=== PATIENT | female | born 1945 | race Caucasian/White ===

== ENCOUNTER 2022-01-06 01:04 | Day surgery (SDC) | payer MEDICARE, SELFPAY ==
--- NOTE | 2021-12-25 08:59 | PC.NURSE ---
Report to the Outpatient Waiting Room, entrance under the green pavilion located off [facility], at time __0630 on date ___01/06/22____. Planned Procedure Time: . Time changes happen often and if your time is changed the preop area will call you the afternoon before. - You and your visitor will be asked to self-screen and do not enter if you have any COVID symptoms. - We encourage only one visitor and NO visitors under age 16 are allowed at this time. Your visitor will receive communication by the phone number that is given day of service. - The patient visitor is requested to social distance or may leave the building when not with patient due to restrictions. - A mask is required within the hospital. Patients may have clear liquids (water, carbonated beverages, clear teas, apple juice) until 3 hours prior to surgery with a maximum of 20 ounces. - No food from midnight until time of surgery - Infants may have breast milk until 4 hours before surgery, formula 6 hours prior to surgery. - Children will be allowed to drink immediately following surgery. If applicable, please bring a bottle or sippy cup to assist with drinking. Juice, water, soda, and popsicles are readily available. For infants on formula, please bring formula the day of surgery. Pacifiers are allowed. Take the following medications with a SIP of water the morning of surgery: _NONE Medications to discontinue per physician ALL VITAMINS AND SUPPLEMENTS 3 DAYS PRE OP Date to take last dose___01/02/22 HIBICLENS SHOWER MORNING OF SURGERY Please no make-up, nail micronesian, hairspray, perfume, deodorant, or body powder the day of surgery. No jewelry (including any body piercings) or valuables the day of surgery, leave them at home. Please take a shower or bath the night before, or the morning of, surgery with an antibacterial soap. Wear comfortable, loose fitting clothing. Children are encouraged to wear pajamas. - Jewelry must be removed prior to entering the operating room. Rings and piercings that are not removed may be cut off. - The hospital will not accept responsibility for valuables. - Please leave all valuables, including medications, at home the day of surgery. If you are going home after surgery, a licensed sulky driver must drive you home. - NO public transportation without another adult. - We recommend that an adult stay with you for 24 hours following discharge. - We also recommend that you do not drive, make important decision, drink alcoholic beverages, or take any drugs that were not prescribed by your health care provider for at least 24 hours after your discharge time. Follow any additional instructions given to you from your surgeon. If you or anyone in your household have experienced Covid symptoms in the past week, please notify your surgeon or the nurse liaison at the phone number below for possible testing. Telephone instructions given to _PATIENT and asked if any additional questions and then verbalized understanding. Patient advised to call surgeon office or pre surgery nurse liaison [phone] if any additional questions.
[2021-12-25 09:05] VITALS: BMI 25.0
--- NOTE | 2022-01-04 17:08 | PM.SD2 ---
Same Day Admit/Disch: HPI History of Present Illness Chief complaint: Tobin Ing Hernia's Narrative: Jerrica Wang is a 76 year old female Who was having lower abdominal discomfort last summer. This was worse when she was involved in heavier activity or writing her lawn more. She had a CT scan in August which suggested bilateral fat containing inguinal hernias. We saw her in September and she was found by exam to have bilateral inguinal hernias. The hernias were reducible. The patient is taken to surgery now for repair of bilateral inguinal hernias under anesthesia. [facility] Past Medical History Medical History (Updated 01/05/22 @ 14:00 by Woody Salas MD) Arthritis COPD (chronic obstructive pulmonary disease) GERD without esophagitis Liver lesion Other dietary vitamin B12 deficiency anemia Pulmonary emphysema Vitamin D deficiency, unspecified Surgical History Surgical History History of hysterectomy 1982 History of tonsillectomy Hx of foot surgery Family History Family History Father Family history of diabetes mellitus in first degree relative Mother Family history of diabetes mellitus in first degree relative Social History Social History Smoking packs per day: 1 Smoking cigarettes per day: 20.0 Years smoked: 20 Smoking pack-years: 20.00 Smoking status: Former smoker Tobacco type: cigarettes Second hand tobacco smoke exposure: No Smoking end date: 02/21/86 Alcohol intake: current Drinks per week: 2 Alcohol use details: wine Substance use: never Substance use type: does not use Living arrangements: alone Gender identity (if verbalized by the patient): Female Spiritual care concerns: No Agree to blood products: Yes Same Day Admit/Disch: Med Pre-admit Medications Home Medications Medication Instructions Recorded Confirmed Type famotidine 40 mg tablet (Pepcid) 40 mg PO DAILY 11/24/20 12/25/21 History ciprofloxacin HCl 500 mg tablet 500 mg PO Q12H #14 tabs 12/24/21 12/25/21 Rx (Cipro) acetaminophen 500 mg tablet 500 mg PO QID PRN Pain 12/25/21 12/25/21 History cetirizine 10 mg tablet (Zyrtec) 10 mg PO DAILY 12/25/21 12/25/21 History cholecalciferol (vitamin D3) 50 50 mcg PO DAILY 12/25/21 01/06/22 History mcg (2,000 unit) capsule cyanocobalamin (vitamin B-12) 1,000 mcg PO DAILY 12/25/21 01/06/22 History 1,000 mcg capsule hydrocodone 5 mg-acetaminophen 325 1 - 2 tablet PO Q6H PRN pain #15 01/06/22 Rx mg tablet tabs ibuprofen 600 mg tablet 600 mg PO Q6H PRN pain #14 tabs 01/06/22 Rx Exam Const: General: comfortable, no acute distress, alert and awake HENMT: Head: normocephalic and atraumatic Mouth: Yes Normal oral and palatal mucosa present Eyes: Conjunctivae: conjunctivae normal Pupils: Equal, round and reactive pupils present EOM: EOMs intact bilaterally Neck: Neck: normal visual inspection, no lymphadenopathy and nontender Resp: Effort & Inspection: normal respiratory effort Auscultation: clear to auscultation bilaterally Cardio: Rate: regular rate Rhythm: regular rhythm Heart sounds: no gallops, no murmurs and no rubs GI: Inspection: non-distended and visible herniation ( Bilateral groin bulging.) GI Palp: Yes Soft to palpation, No Tenderness to palpation present (GI), No Hepatomegaly present, No Splenomegaly present and Yes Hernia present ( Bilateral reducible inguinal hernias) Skin: Lesions: no lesions Rashes: no rashes Neuro: General: no focal motor deficits and CN's II-XI intact bilaterally Cranial nerves: Yes Equal, round and reactive pupils present, Yes Bilaterally intact EOM present, Yes facial symmetry and Yes Midline tongue present Speech: normal speech Motor exam (neuro): 5/5 motor strength present throughout and Motor abnormalities not prese
--- NOTE | 2022-01-05 13:59 | WPDANESEPPF ---
Anes - Initial Pre Proc Eval Procedure: Operation Date: 01/06/22 08:30 Proposed Procedures p Repair of Bilateral Inguinal Hernias with Mesh - Kevin Smith MD Date/Time: 01/05/22 13:59 Surgeon: Kevin Smith MD Pre Op Diagnosis: Tobin Ing Hernia's Patient Data Age: 76 Gender: F Height: 1.65 m Weight: 68.05 kg Allergies Allergy/AdvReac Type Severity Reaction Status Date / Time nitrofurantoin Allergy Unknown Unknown Verified 01/06/22 07:25 Penicillins Allergy Unknown Unknown Verified 01/06/22 07:25 Sulfa (Sulfonamide Allergy Unknown hives Verified 01/06/22 07:25 Antibiotics) cephalexin [From Keflex] AdvReac diarrhea Verified 01/06/22 07:25 Home Medications Medication Instructions Recorded Confirmed Type famotidine 40 mg tablet (Pepcid) 40 mg PO DAILY 11/24/20 12/25/21 History ciprofloxacin HCl 500 mg tablet 500 mg PO Q12H #14 tabs 12/24/21 12/25/21 Rx (Cipro) acetaminophen 500 mg tablet 500 mg PO QID PRN Pain 12/25/21 12/25/21 History cetirizine 10 mg tablet (Zyrtec) 10 mg PO DAILY 12/25/21 12/25/21 History cholecalciferol (vitamin D3) 50 50 mcg PO DAILY 12/25/21 01/06/22 History mcg (2,000 unit) capsule cyanocobalamin (vitamin B-12) 1,000 mcg PO DAILY 12/25/21 01/06/22 History 1,000 mcg capsule Patient hx anesthesia problems: none Family hx anesthesia problems: none Results Review: All pre-operative results and documents have been reviewed as part of the pre-operative evaluation. [facility] Past Medical History Medical History (Updated 01/05/22 @ 14:00 by Woody Salas MD) Arthritis COPD (chronic obstructive pulmonary disease) GERD without esophagitis Liver lesion Other dietary vitamin B12 deficiency anemia Pulmonary emphysema Vitamin D deficiency, unspecified Surgical History Surgical History History of hysterectomy 1982 History of tonsillectomy Hx of foot surgery Family History Family History Father Family history of diabetes mellitus in first degree relative Mother Family history of diabetes mellitus in first degree relative Social History Social History Smoking packs per day: 1 Smoking cigarettes per day: 20.0 Years smoked: 20 Smoking pack-years: 20.00 Smoking status: Former smoker Tobacco type: cigarettes Second hand tobacco smoke exposure: No Smoking end date: 02/21/86 Alcohol intake: current Drinks per week: 2 Alcohol use details: wine Substance use: never Substance use type: does not use Living arrangements: alone Gender identity (if verbalized by the patient): Female Spiritual care concerns: No Agree to blood products: Yes Anes - Eval Final PreProcedure Day of Procedure 01/05/22 13:59 Patient weight: normal Heart: regular rate and rhythm Lungs: clear to auscultation and normal air movement Airway: Mallampati scale class II Neurological: alert and oriented Last oral intake: >/= 8 hours ASA classification: III Emergent: no Anesthetic plan: proceed Anesthesia type and monitoring: general GIVS and LMA Results Review: All pre-operative results and documents have been reviewed as part of the pre-operative evaluation. Informed Consent: The patient's anesthetic plan and its attendant risks and benefits were discussed with the patient/family/POA. Questions were solicited and answers provided to the satisfaction of the patient/family/POA.
[2022-01-06 06:45] VITALS: BP 142/51; PULSE 71; RESP 14; TEMP 36.8; O2SAT 98
[2022-01-06 06:52] VITALS: BMI 25.3
[2022-01-06] MEDS: LACTATED RINGERS 1,000 ML 30 ML IV CONT (07:08)
[2022-01-06] MEDS: KETOROLAC 15 MG/ML VIAL (*BKC) IV PUSH (07:15)
[2022-01-06] MEDS: ACETAMINOPHEN 500 MG TABLET 1000 MG PO (07:15)
--- NOTE | 2022-01-06 08:37 | WPDHPUPDATE1 ---
History and Physical Update Update Date/Time: 01/06/22 08:37 History and Physical has been reviewed, including an updated exam of the patient. There are NO changes in the patient's condition. Risks, benefits, and alternatives have been discussed and questions answered. Patient agrees to proceed with procedure.
[2022-01-06] MEDS: ceFAZolin 2 GM/D5W 50 ML 2 GM/50 ML BAG IVPB (08:39)
[2022-01-06] MEDS: BUPIVACAINE/EPINEPHRINE 0.25% 50 ML VIAL INFILTRATE (09:04)
[2022-01-06 10:23] VITALS: BP 111/54; PULSE 72; RESP 12; O2SAT 94
--- NOTE | 2022-01-06 10:41 | W.PM.PROC2 ---
Procedure Note - Detailed Date of Procedure 01/06/22 Pre-op Diagnosis Bilateral inguinal hernias Post-op Diagnosis Same Procedure Performed Bilateral inguinal hernia repairs with mesh Surgeon Kevin Smith MD Contact Center Assistant Shabnam GRACE Anesthesia MAC, Local (0.25% Marcaine with epinephrine) and Other (Xaracoll) Indications Patient has had lower abdominal pain. CT scan was done and showed bilateral fat containing inguinal hernias. She was seen in the office and found to have bilateral inguinal hernias on exam. She is taken to surgery now for repair of each of these hernias. Findings Each hernia was an indirect hernia. The right side was a little larger than the left. Description of Procedure The patient was taken to surgery and anesthetic was introduced. Both groins in the genitalia were prepped and draped. We started on the patient's left side. The proposed incision was marked on the skin. Local was infiltrated into the skin and the deeper subcutaneous tissues. Incision was made and dissection was carried down through the subcutaneous. Crossing veins were cauterized and divided. Dissection was carried down to the external oblique aponeurosis. The aponeurosis was exposed as was the external ring. We then infiltrated additional local deep to the aponeurosis. The aponeurosis was then opened laterally and extended medially through the external ring. We freed the leaves of the aponeurosis from the underlying inguinal canal contents. The ilioinguinal nerve was found during the surgery was carefully preserved. The round ligament was very diminutive and was excised. The hernia was easily found. It was dissected back to a high dissection. It was then dunked into the retroperitoneum. A large PerFix Light plug was then chosen and placed in the defect. The edges were sutured to the transversalis fascia with interrupted 3-0 Vicryl suture. The defect was partially closed with interrupted 3-0 Vicryl suture. We then cut the patch to the appropriate size. A slit was made in the patch so that it would not entrap the ilioinguinal nerve. I then placed the patch over the inguinal canal floor with the nerve passing through the slit and laying comfortably on top of the mesh. I then put the 1st piece of Xaracoll over the patch. We then closed the external oblique aponeurosis with interrupted 3-0 Vicryl suture. The 2nd pieces Xaracoll was placed over the aponeurosis. We then closed Rajwinder's fascia with interrupted 3-0 Vicryl suture. The last piece of Xaracoll was placed in the subcutaneous. The skin was then closed with subcuticular interrupted 4-0 Vicryl skin suture. We then covered this incision and I went to the patient's right side. I then stacey a mirror image right inguinal incision on the patient. Local was infiltrated again and incision made. In similar fashion we dissected down to the external oblique aponeurosis and exposed it. Local was infiltrated deep to the aponeurosis as before. The aponeurosis was opened and leaves were for dissected free from the inguinal canal contents. The ilioinguinal nerve was not evident in the inguinal canal. The round ligament was again excised. The inguinal hernia was again an indirect hernia. There was some lipomatous tissue that was excised and discarded. We dissected out the hernia sac and dissected it back to a high dissection. This was a larger hernia. It was dunked into the retroperitoneum. An extra-large PerFix Light plug was then placed in the defect. The edges were sutured to the transversalis fascia with interrupted 3-0 Vicryl suture. The defect was also partially closed with 3-0 Vicryl suture. Then cut the patch to the appropriate size and placed it over the inguinal canal floor. First piece of Xaracoll was placed over the patch. The external oblique aponeurosis was closed with 3-0 Vicryl suture. The 2nd piece of Xaracoll was placed. Rajwinder's fascia was then closed with Vicryl suture. Th
[2022-01-06 10:45] VITALS: BP 125/62; PULSE 73; RESP 12; O2SAT 93
[2022-01-06 11:15] VITALS: BP 154/72; PULSE 60; RESP 14
== END 2022-01-06 11:35 | disposition home or self-care (01) ==
PROVIDERS: PCP Family Medicine; Visit Provider Surgery
PROC: (CPT 49505; principal; 2022-01-06 08:30)
DX: K40.20 Bilateral inguinal hernia, without obstruction or gangrene, not specified as recurrent (principal); K21.9 Gastro-esophageal reflux disease without esophagitis; J43.9 Emphysema, unspecified; E55.9 Vitamin D deficiency, unspecified; D51.3 Other dietary vitamin B12 deficiency anemia; Z87.891 Personal history of nicotine dependence
CPT/HCPCS: 49505; A9270; C1781; J0690; J1885; J2704; J3010; J7120

== ENCOUNTER 2022-12-17 07:21 | Outpatient (CLI) | payer MEDICARE, SELFPAY ==
--- NOTE | ~2022-12-17 | NM_ITS ---
EXAMINATION: NM hepatobiliary wo pharm DATE: 12/17/2022 10:43 CDT INDICATION: Abdomen pain with diarrhea. COMPARISON: None. TECHNIQUE: 5 mCi Tc-99m mebrofenin (Choletec) was administered intravenously. Scintigraphic images o f the abdomen were obtained for one hour. At the 1 hour time point, the patient drank 8 oz Ensure, an d imaging was continued for 60 minutes. Gallbladder ejection fraction was calculated by the technolog ist. FINDINGS: There is normal clearance of radiotracer from the blood pool. There is homogeneous tracer u ptake by the liver. Activity progresses to the bowel and gallbladder. The gallbladder ejection fract ion is 62%. Note that with this technique, normal GBEF >= 33%. IMPRESSION: 1. Normal hepatobiliary scan. Reviewed, dictated and finalized at location B.
== END 2022-12-17 07:22 | disposition home or self-care (01) ==
PROVIDERS: PCP Physician Assistant Medical; Visit Provider Physician Assistant Medical
DX: K52.9 Noninfective gastroenteritis and colitis, unspecified (principal)
CPT/HCPCS: 78226; A9537

== ENCOUNTER 2023-12-20 15:41 | Emergency (ER) | payer MEDICARE, SELFPAY ==
--- NOTE | 2023-12-20 15:43 | PC.NURSE ---
Message left for Anais on her vm d/t patient recent travel outside the [place].
--- NOTE | 2023-12-20 15:50 | PC.NURSE ---
Patient to desk with visitors. Visitor states, we're going to [place] . Patient visitor wheeled patient out of ED without difficulty.
== END 2023-12-20 16:00 | disposition left against medical advice (07) ==
LOC: ANHED 15:59
PROVIDERS: PCP Physician Assistant Medical
DX: Z53.21 Procedure and treatment not carried out due to patient leaving prior to being seen by health care provider (principal)
CPT/HCPCS: 99199

== ENCOUNTER 2025-01-16 09:30 | Outpatient (RCR) | payer MEDICARE, SELFPAY ==
--- NOTE | 2024-11-01 11:40 | PTOPEVAL1 ---
Assessment and note entered by Elaine Villa, PT Evaluation Information Assessment Status Evaluation Diagnosis Unsteadiness on feet, pain in L and R knee, Oth S &S of musculoskeletal sys ICD-10 Condition Codes (PT) Pain in right knee M25.561,Pain in left knee M25. 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 Right knee in 2019, and left in 03/2024; [facility]. Pt reports surgeon shrugged it off. Told her if the left knee got done, the right would also feel better and does not. Reports didn't do her exercises as she should have . Pt reports knees hurt the most wiht getting up from a chair, walking up steps, and with walking. Tylenol arthritis helps but doesn't want to take this too much. Is on Celebrex as well. Reported Pain Level Pain Score 0: Self Report Assessment PT Clinical Summary Pt presents with ed knee pain, and difficulty in walking. She had both knees replaced, R TKA in 2018, and L TKA 03/2024. She reports she did not do her exercises as well as she should have related to this past procedure. Evaluation shows ed foot pronation causing increased valgus ankle ed knees , decreased strength to the knees and hip stabilizer muscles, tight gastrocs, possible leg length discrepancy R>L, and gait abnormality. Pt will greatly benefit from therapy to address deficits,and educate patient on appropriate LE alignment with activities to reduce pain and improve function. Plan of Care Interventions Electrical Stimulation,Hot Pack/Cold Pack,Manual Therapy,Neuro Re-education,Patient/Caregiver Education,Therapeutic Activities,Therapeutic Exercise,Self-Care/Home Management,Other Other Interventions Taping PT Services Indicated Yes Treatment Frequency and 2x weekly x 10 visits Duration These treatments will address the objective and functional deficits as defined above. The patient will be advanced safely and appropriately in order for the patient to progress towards his/her prior level of function. Additional exercises will be introduced and as well as a comprehensive home exercise program upon discharge, if needed, ?to ensure carryover of functional gains achieved in the clinic. This treatment plan has been reviewed and agreement upon by the patient.
--- NOTE | 2024-11-01 11:40 | OPREHPOC ---
Outpatient Therapy Plan of Care This is a Multidisciplinary Plan of Care that may contain components documented by all disciplines (PT, OT, and ST.) PT Problem 1 PT Problem #1 Knowledge Deficit PT Goal 1 Goal / Goal Update Pt will be independent in HEP Pt will verbalize understanding of diagnosis and prognosis PT Goal 1 Goal / Goal Update Pt will report greatest pain level at 3/10 or less to improve ADLs and activities Target Visit 10 PT Goal 2 Goal / Goal Update Pt will report resolution of pain to return to PLOF Target Visit 20 PT Problem 3 PT Problem #3 Impaired Strength PT Goal 1 Goal / Goal Update Pt will demo 4/5 or greater strength in BLE knees to improve knee stability and kinematics with activities PT Goal 2 Goal / Goal Update Pt will demo 4/5 or greater strength in BLE glutes to improve knee stability and kinematics with activities Target Visit 20 PT Problem 4 PT Problem #4 Impaired Flexibility PT Goal 1 Goal / Goal Update Pt will demonstrate ankle dorsiflexion of 5 degrees for improved ambulation Target Visit 10 PT Goal 2 Goal / Goal Update Pt will demonstrate ankle dorsiflexion of 10 degrees for improved ambulation Target Visit 20
--- NOTE | 2024-11-28 12:31 | PCPTNOTE ---
Pt. treatment was cancelled due to perceived gas leak.
--- NOTE | 2024-12-05 15:45 | PTOPPROG ---
Assessment and note entered by Elaine Villa, PT Evaluation Information Assessment Status Progress Diagnosis Unsteadiness on feet, pain in L and R knee, Oth S &S of musculoskeletal sys ICD-10 Condition Codes (PT) Pain in right knee M25.561,Pain in left knee M25. 562 Subjective Information Pt reports knees feel about the same. Walking is not a problem but steps and getting out of chairs are still problems. Pt reports has not been paying attention to getting in and out of chairs. States steroids had been helpful and when was on them felt good. Reports has not been doing her exercises as she should. States is only doing two of them but has been assigned seven exercises. Arch supports are in and feel good Assessment PT Clinical Summary Pt presents with continued pain in bilat knees appearing related to patellar and quad tendons. Pt reports she has not been compliant in her exercises outside of therapy, and her reports of pain have also increased compared to evaluation. Objectively she has shown improvement in ROM and strength of BLEs. Reinforced importance of exercise program and application of therapist instructions for maximal improvement. Limiting HEP to 5 exercises for patient compliance. Pt will benefit from continued therapy to continue progressing strengthening, ROM and flexibility of supporting structures, and reducing pain. Plan of Care Interventions Electrical Stimulation,Hot Pack/Cold Pack,Manual Therapy,Neuro Re-education,Patient/Caregiver Education,Therapeutic Activities,Therapeutic Exercise,Self-Care/Home Management,Other Other Interventions Taping PT Services Indicated Yes Treatment Frequency and 1-2x weekly x 10 visits Duration These treatments will address the objective and functional deficits as defined above. The patient will be advanced safely and appropriately in order for the patient to progress towards his/her prior level of function. Additional exercises will be introduced and as well as a comprehensive home exercise program upon discharge, if needed, ?to ensure carryover of functional gains achieved in the clinic. This treatment plan has been reviewed and agreement upon by the patient.
--- NOTE | 2025-01-18 08:53 | PTOPDC ---
Assessment and note entered by Elaine Villa, PT Evaluation Information Assessment Status Discharge Diagnosis Unsteadiness on feet, pain in L and R knee, Oth S &S of musculoskeletal sys ICD-10 Condition Codes (PT) Pain in right knee M25.561,Pain in left knee M25. 562 Subjective Information Pt reports she was very faithful with her exercises this time around. Also wore her tennis shoes and though this didn't seem to effect her pain, she reported feeling more stable. Pt states she is on celebrex but doesn't seem to be helping. Also has Voltaren gel but has stopped using this. Has seen a devops at [place] and was told Osteoarthritis, not RA or fibromyalgia Pt reports feeling she is stronger with PT. Pt reports feeling 100% accept the pain. Legs are stronger, balance seems a little better. Doing steps is still the worst. Can do them but is a chore. Pain resolves with resolution of steps Pt states she is planning on gong back to [place] for aquatics after the first of the year Reports with ADLS only goes up to a 1/10, stairs are the hardest part Still has difficulty sleeping due to discomfort, taking lyrica but a low dosage at night Reported Pain Level Pain Score 0: Self Report Assessment PT Clinical Summary Pt shows improvement in her strength overall, ROM remains unchanged from last session. Pt reports she feels stronger and more stable with activities . Pain cont to range from 0-5/10 however only has 5/10 with stairs and this resolves immediately upon completion of activity. Discussed cost- benefit related to pursuance of further pain management, this is always her choice and is within her patient rights to seek additional information from additional orthopedic experts. Her HEP was updated, and she understands importance of continued exercises. Pt appears to have met max benefit for therapy at this time and is thus being discharged from therapy services. Plan of Care PT Services Indicated No
== END 2025-01-18 09:20 | disposition home or self-care (01) ==
LOC: ANHHIPT 09:30
PROVIDERS: PCP Physician Assistant Medical; Visit Provider Physician Assistant Medical
DX: M25.561 Pain in right knee (principal); M25.562 Pain in left knee; R29.898 Other symptoms and signs involving the musculoskeletal system; R26.81 Unsteadiness on feet
CPT/HCPCS: 97014; 97110; 97112; 97162; 97530; 97750; G0283